=== PATIENT | male | born 1960 | race Caucasian/White ===

== ENCOUNTER 2023-01-25 16:25 | Emergency (ER) | payer MEDICARE ==
[~2023-01-25] VITALS: Ht 182.9 cm; Wt 91.0 kg
[2023-01-25 16:45] VITALS: BP 121/79
[2023-01-25 16:48] VITALS: BP 121/79
[2023-01-25] MEDS ORDERED: OMNI-PAC300 MG PO (17:22)
== END 2023-01-25 17:59 | disposition home or self-care (01) ==
LOC: ED 16:25
DX: L03.012 Cellulitis of left finger (principal)